=== PATIENT | female | born 1970 | race Caucasian/White ===

== ENCOUNTER 2016-09-05 20:30 | Emergency (ER) | payer MEDICAID ==
[~2016-09-05] VITALS: Ht 163.8 cm; Wt 63.0 kg
[~2016-09-05 20:30] MED LIST: ASPIRIN81 MG PO; KLONOPIN1 MG PO; MS CONTIN30 MG PO; PERCOCET 10-321 EACH PO; PROZAC20 MG PO
== END 2016-09-05 21:50 | disposition short-term general hospital (02) ==
LOC: ER 20:30
DX: R44.3 Hallucinations, unspecified (principal); T42.4X5A Adverse effect of benzodiazepines, initial encounter; F41.9 Anxiety disorder, unspecified; F32.9 Major depressive disorder, single episode, unspecified; M79.7 Fibromyalgia; F17.210 Nicotine dependence, cigarettes, uncomplicated